=== PATIENT | male | born 1940 | race Two or more races ===

== ENCOUNTER → 2016-05-15 | Outpatient (CLI) | payer MEDICARE | END | disposition home or self-care (01) | LOC: PETCFH 07:40 | PROVIDERS: ATTEND Physician Assistant | DX: M47.896 Other spondylosis, lumbar region (principal); M47.898 Other spondylosis, sacral and sacrococcygeal region; M17.9 Osteoarthritis of knee, unspecified; M54.5 Low back pain; G89.29 Other chronic pain | CPT/HCPCS: 78306; A9503 ==